=== PATIENT | female | born 2000 | race Caucasian/White ===

== ENCOUNTER 2019-08-08 09:46 | Emergency (ER) | payer OTHER ==
[~2019-08-08] VITALS: Ht 175.3 cm; Wt 59.0 kg
[2019-08-08] MEDS ORDERED: TOBREX5 ML OPHT (10:40)
== END 2019-08-08 10:51 | disposition home or self-care (01) ==
LOC: ER 09:46
DX: H10.11 Acute atopic conjunctivitis, right eye (principal)